=== PATIENT | male | born 1985 | race Two or more races ===

== ENCOUNTER → 2025-01-11 06:30 | Outpatient (CLI) | payer OTHER ==
[2025-01-11 07:22] LABS: BASO % 0.5 % (0.1-1.2); EOS # 0.16 (0.04-0.54); EOS % 2.5 % (0.7-7.0); LYMPH # 2.30 (1.18-3.74); LYMPH % 36.2 % (19.3-53.1); MEAN PLATELET VOLUME 9.70 fl (9.4-12.4); MONO # 0.50 (0.24-0.82); MONO % 7.9 % (4.7-12.5); NEUT # 3.36 (1.56-6.13); NEUT % 52.7 % (34.0-71.1); RED CELL DISTRIBUTION WIDTH 12.5 % (11.6-14.4)
[2025-01-11 07:23] LABS: URINE APPEARANCE Clear; URINE BILIRRUBIN Negative (NEGATIVE); URINE BLOOD Negative; URINE COLOR Yellow; URINE GLUCOSE Negative (NEGATIVE); URINE KETONE Negative (NEGATIVE); URINE LEUKOCYTE Negative; URINE NITRATE Negative; URINE PROTEIN Trace (NEGATIVE); URINE UROBILINOGEN 1.0 E.U./dl
[2025-01-11 07:28] LABS: URINE BACTERIA 5.9 uL (0.0-1933); URINE EPITHELIAL CELLS 4.2 uL (0.0-38.8); URINE RBC 3.3 uL (0.0-20.8); URINE WBC 8.7 uL (0.0-23.2)
[2025-01-11 07:36] LABS: URINE CAST 0.00 uL (0.0-1.40)
[2025-01-11 07:58] LABS: ALT/SGPT 44.0 U/L (12-78); AST/SGOT 17.0 U/L (15-37); BILIRUBIN TOTAL 0.66 mg/dL (0.3-1.2); BUN CREA RATIO 26.0 (7.0-25.0); CHOL HDL RATIO 3.3 (0-5.0); CREATININE SERUM 0.72 mg/dL (0.70-1.30); GFR 120.3; GLOBULINA 3.0 G/DL (2.4-3.5); GLUCOSE FASTING 94.0 mg/dL (65-100); HDL 47.0 mg/dl (40-60); LDL 89.0 mg/dl (0-130); OSMOLALITY SERUM 287.0 MOSM/KG (275-295); TSH 1.74 uIU/mL (0.358-3.74); VLDL 18.0 (0-39)
== END | disposition home or self-care (01) ==
LOC: LAB 06:30
PROVIDERS: ATTEND Internal Medicine Cardiovascular Disease
DX: D64.9 Anemia, unspecified (principal); N39.0 Urinary tract infection, site not specified; R10.9 Unspecified abdominal pain; E03.9 Hypothyroidism, unspecified; E78.5 Hyperlipidemia, unspecified; E11.9 Type 2 diabetes mellitus without complications; I50.22 Chronic systolic (congestive) heart failure

== ENCOUNTER 2025-03-02 08:36 | Outpatient (CLI) | payer OTHER ==
[2025-03-02 10:08] LABS: BASO % 0.7 % (0.1-1.2); EOS # 0.15 (0.04-0.54); EOS % 2.5 % (0.7-7.0); LYMPH # 2.01 (1.18-3.74); LYMPH % 33.5 % (19.3-53.1); MEAN PLATELET VOLUME 9.70 fl (9.4-12.4); MONO # 0.39 (0.24-0.82); MONO % 6.5 % (4.7-12.5); NEUT # 3.40 (1.56-6.13); NEUT % 56.6 % (34.0-71.1); RED CELL DISTRIBUTION WIDTH 12.8 % (11.6-14.4)
[2025-03-02 10:16] LABS: URINE APPEARANCE Clear; URINE BILIRRUBIN Negative (NEGATIVE); URINE BLOOD Negative; URINE COLOR Yellow; URINE GLUCOSE Negative (NEGATIVE); URINE KETONE Negative (NEGATIVE); URINE LEUKOCYTE Negative; URINE NITRATE Negative; URINE PROTEIN Trace (NEGATIVE); URINE UROBILINOGEN 1.0 E.U./dl
[2025-03-02 10:22] LABS: URINE BACTERIA 4.7 uL (0.0-1933); URINE EPITHELIAL CELLS 2.9 uL (0.0-38.8); URINE RBC 4.1 uL (0.0-20.8); URINE WBC 5.3 uL (0.0-23.2)
[2025-03-02 10:38] LABS: URINE CAST 0.14 uL (0.0-1.40)
[2025-03-02 11:10] LABS: ALT/SGPT 43.0 U/L (12-78); AST/SGOT 16.0 U/L (15-37); BILIRUBIN TOTAL 0.54 mg/dL (0.3-1.2); BUN CREA RATIO 25.0 (7.0-25.0); CHOL HDL RATIO 2.4 (0-5.0); CREATININE SERUM 0.79 mg/dL (0.70-1.30); GFR 108.09; GLOBULINA 3.8 G/DL (2.4-3.5); GLUCOSE FASTING 83.0 mg/dL (65-100); HDL 58.0 mg/dl (40-60); LDL 68.0 mg/dl (0-130); OSMOLALITY SERUM 287.0 MOSM/KG (275-295); TSH 0.837 uIU/mL (0.358-3.74); VLDL 11.0 (0-39)
[2025-03-04 06:06] LABS: chla t Negative (Negative); neiss Negative (Negative)
== END 2025-03-02 08:40 | disposition home or self-care (01) ==
LOC: LAB 08:36
DX: E78.2 Mixed hyperlipidemia (principal); I10 Essential (primary) hypertension; Z11.3 Encounter for screening for infections with a predominantly sexual mode of transmission; E03.9 Hypothyroidism, unspecified; E11.9 Type 2 diabetes mellitus without complications; Z12.5 Encounter for screening for malignant neoplasm of prostate; Z20.5 Contact with and (suspected) exposure to viral hepatitis; R74.8 Abnormal levels of other serum enzymes; E55.9 Vitamin D deficiency, unspecified

== ENCOUNTER 2025-03-23 13:50 | Emergency (ER) | payer OTHER ==
[~2025-03-23] VITALS: Ht 167.6 cm; Wt 74.8 kg
[2025-03-23 14:52] VITALS: BP 124/82; O2SAT 97
[2025-03-23] MEDS ORDERED: IRBESARTAN150 MG PO (14:54)
[2025-03-23] MEDS ORDERED: KETOROLAC TROMETHAMINE 60 MG VIAL IM ONE ×2 (18:00→18:53)
[2025-03-23] MEDS ORDERED: ORPHENADRINE CITRATE 30 MG/ML AMPUL IM ONE (18:00)
[2025-03-23] MEDS ORDERED: ACETAMINOPHEN 500 MG GEL..CAP PO ONE ×2 (18:00→18:53)
[2025-03-23] MEDS ORDERED: DEXAMETHASONE SODIUM PHOSPHATE 4 MG/ML VIAL IM ONE (18:00)
[2025-03-23] MEDS ORDERED: ORPHENADRINE CITRATE 30 MG/ML AMPUL ONE (18:52)
[2025-03-23] MEDS ORDERED: DEXAMETHASONE SODIUM PHOSPHATE 4 MG/ML VIAL ONE (18:53)
[2025-03-23] MEDS ORDERED: NORFLEX100MG PO (19:18)
[2025-03-23] MEDS ORDERED: PEPCID AC20 MG PO (19:18)
[2025-03-23] MEDS ORDERED: IBU600 MG PO (19:18)
== END 2025-03-23 21:34 | disposition home or self-care (01) ==
LOC: ER 13:51
DX: M77.51 Other enthesopathy of right foot and ankle (principal); I10 Essential (primary) hypertension